=== PATIENT | male | born 1980 | race African-American/Black ===

== ENCOUNTER 2020-10-09 13:15 | Emergency (ER) | payer BC ==
[~2020-10-09] VITALS: Ht 180.3 cm; Wt 99.8 kg
--- NOTE | 2020-10-09 15:28 | EKG ---
[place] [address] ELECTROCARDIOGRAM REPORT Name: PK REINA Room: [facility]#: [id number] Admission: 10/09/20 Attend Phys: Discharge: Date of : 82 Date of Service: 10/09/20 1436 Report #: [id number] THIS REPORT FOR: //name// [facility] ED Test Date: 2020-10-09 Test Time: 14:36:40 Pat Name: PK REINA Department: Room: Gender: Dietetic Aide: : 1980 Requested By: Kimberly Mendez Order Number: [id number] MD: Ho Parks Measurements Intervals [place] Rate: 94 P: 23 W[place]: 147 QRS: 34 QRSD: 95 T: 4 QT: 348 QTc: 436 Interpretive Statements Sinus rhythm Abnormal R-wave progression, late transition No previous ECG available for comparison Electronically Signed On 10-09-2020 15:28:19 CDT by Ho Parks [email or web address] <ELECTRONICALLY SIGNED> By: Ho Parks MD, [facility] 10/09/20 1528 1436 1436 Ho Parks MD, FACC /EPI
[2020-10-09] MEDS ORDERED: DOXYCYCLINE 10100 MG PO (16:06)
[2020-10-09] MEDS ORDERED: VENTOLIN HFA 1818 GM INH (16:06)
[2020-10-09] MEDS ORDERED: FLEXERIL PO (16:06)
[2020-10-09 16:21] VITALS: BP 134/72
== END 2020-10-09 16:22 | disposition home or self-care (01) ==
LOC: M.ERS 13:15
DX: J18.9 Pneumonia, unspecified organism (principal); Z20.822 Contact with and (suspected) exposure to COVID-19; M54.6 Pain in thoracic spine